=== PATIENT | female | born 1995 | race Caucasian/White ===

== ENCOUNTER 2022-08-22 00:01 | Emergency (ER) | payer BC ==
[~2022-08-22] VITALS: Ht 154.9 cm; Wt 56.8 kg
[2022-08-22 00:31] VITALS: BP 120/72
--- NOTE | 2022-08-22 00:34 | NUR ---
HER VITAL SIGNS ARE WNLS.
== END 2022-08-22 01:19 ==
LOC: ER 00:04
DX: I10 Essential (primary) hypertension (principal)
CPT/HCPCS: 99283

== ENCOUNTER 2022-08-23 17:21 | Emergency (ER) | payer BC ==
[~2022-08-23] VITALS: Ht 154.9 cm; Wt 54.5 kg
[2022-08-23 18:19] VITALS: BP 135/91
--- NOTE | 2022-08-23 19:00 | NUR ---
pt denies injury/pain. AOx4, PWD no distress. Smiling, carrying on WNLS
== END 2022-08-23 19:15 ==
LOC: ER 17:22
CPT/HCPCS: 99283